=== PATIENT | male | born 1970 | race Caucasian/White ===

== ENCOUNTER 2023-07-09 23:13 | Emergency (ER) | payer MEDICAID, OTHER ==
[~2023-07-09] VITALS: Ht 165.1 cm; Wt 69.4 kg
[2023-07-09 23:30] VITALS: BP 128/84; TEMP 98; O2SAT 100
== END 2023-07-10 01:49 | disposition left against medical advice (07) ==
LOC: ER 23:22
DX: M79.672 Pain in left foot (principal)
CPT/HCPCS: 73630-TC